=== PATIENT | female | born 1950 | race Caucasian/White ===

== ENCOUNTER → 2016-07-12 | Outpatient (CLI) | payer OTHER | LOC: BMCIMAGING 09:17 | DX: N95.0 Postmenopausal bleeding (principal) | CPT/HCPCS: G0202 ==

== ENCOUNTER → 2016-09-18 | Outpatient (CLI) | payer OTHER | LOC: FIMAGING 10:47 | PROVIDERS: ATTEND Internal Medicine | DX: R07.89 Other chest pain (principal) ==

== ENCOUNTER → 2016-09-22 | Outpatient (CLI) | payer OTHER ==
[~2016-09-22] MED LIST: IOPAMIDOL (ISOVUE-300) 100 ML BTL ONE
== END ==
LOC: FIMAGING 12:47
PROVIDERS: ATTEND Internal Medicine
DX: R06.02 Shortness of breath (principal); R07.9 Chest pain, unspecified
CPT/HCPCS: Q9967

== ENCOUNTER 2016-11-21 06:03 | Day surgery (SDC) | payer OTHER ==
[2016-11-21 06:50] VITALS: PULSE 111
[2016-11-21] MEDS ORDERED: LIDOCAINE 1% 2 ML INJ ONE (06:54)
[2016-11-21] MEDS ORDERED: LIDOCAINE 1% 2 ML INJ ID PRN (06:55)
[2016-11-21] MEDS ORDERED: LR 1,000 ML IV ONE (06:55)
--- NOTE | 2016-11-21 07:15 | PDGENHP ---
History and Physical History and Physical: Full H&P below. Updates: pt cleared for surgery. On continuous O2 for pulm HTN s/p miso for cervical prep ongoing intermittent bleeding plan of care confirmed with pt and family GABY CHRISTOPHER. [id number] 1950 10/06/2016 10:08 AM Page: 05/07 PATIENT: GABY CHRISTOPHER DATE OF : 1950 DATE: 10/06/2016 10:08 AM HISTORIAN: self VISIT TYPE: Pre-Operative Visit RENDERING PROVIDER: Magda Granados MD REFERRING PROVIDER: DEPARTMENT: Gynecology HOME PHONE #: Assessment/Plan # Detail Type Description 1. Assessment Visit for pre-operative examination (Z01.212). Provider Plan Planned procedure: Hysteroscopy, D&C,polypectomy Consents signed. Reviewed risks of pain, infection, bleeding, damage to other organs, failure to resolve condition, need for add'l procedures, transfusion. Normal exam, completing preop clearance. Already received call from anesthesia nurse. Reviewed pre and postoperative instructions. Rx for [place] and Motrin on day of surgery. Also for miso for cervical prep Recent CBC normal. T&S on day of surgery No antibiotics indicated. Post-op visit 2 weeks after procedure 2. Assessment Postmenopausal vaginal bleeding (N95.0). 3. Assessment Uterine polyp (N84.0). This 66 year old female presents for pre op. History of Present Illness: 1. pre op Here for preop for PMVB with abnormal US findings. EMBx demonstrated benign polyp tissue. Preop testing with Dr. Li has included EKG, CXR with mild opacity, follow- up CT Chest which was normal. Has nuclear stress test upcoming. Did get call from PAT, will stop ASA prior to procedure. No vaginal bleeding since the EMBx Problem List: Problem Description Onset Date Chronic Hypertension 05/03/2007 Y Hyperlipidemia 05/03/2007 Y UT 05/03/2007 Y GERD 05/03/2007 Y Problem List (not yet mapped to SNOMED-CT): Problem Description Onset Date Notes CHRONIC COUGH 05/03/2007 Medications (active prior to today) Medication Name Sig Desc Start Date Stop Date Refilled Elsewhere Zantac 150 mg Tab Take one dose by mouth twice daily 04/04/2012 04/04/2012 N Melany 180 mg Tab Take one dose by mouth daily 04/04/2012 04/04/2012 N Aspir-81 81 mg tablet,delayed release take 1 tablet by oral route every day 04/2013 N Accu-Chek Maude Plus Strips Use strip to test blood glucose 2x/daily 11/14/2012 N VITAMIN B 12 500 mcg Oral TABLET // Y Multi Vitamin 9 mg/15 mL iron oral liquid // Y Diovan HCT 160-12.5 MG Tablet TAKE 1 TABLET BY MOUTH DAILY 06/10/20162016 N magnesium take 4 Tablet by Oral route every day // Y Glucophage XR 750 mg tablet,extended release take 1 tablet by oral route every day with the evening meal 06/27/2016 N Lipitor 40 mg tablet take 1 tablet by oral route every day 09/18/20162016 N Medications reconciled today. Medication Reviewed Adherence Medication Name Sig Desc Elsewhere Status taking as directed Zantac 150 mg Tab Take one dose by mouth twice daily N Verified taking as directed Melany 180 mg Tab Take one dose by mouth daily N Verified taking as directed Aspir-81 81 mg tablet,delayed release take 1 tablet by oral route every day N Verified taking as directed Accu-Chek Maude Plus Strips Use strip to test blood glucose 2x/daily N Verified taking as directed VITAMIN B 12 500 mcg Oral TABLET Y Verified taking as directed Multi Vitamin 9 mg/15 mL iron oral liquid Y Verified taking as directed Diovan HCT 160-12.5 MG Tablet TAKE 1 TABLET BY MOUTH DAILY N Verified taking as directed Glucophage XR 750 mg tablet,extended release take 1 tablet by oral route every day with the evening meal N Verified taking as directed magnesium take 4 Tablet by Oral route every day Y Verified taking as directed Lipitor 40 mg tablet take 1 tablet by oral route every day N Verified Allergies: Ingredient Reaction Medication Name Comment SULFANILAMIDE Hives/skin rash PENICILLINS Hives/skin rash SOCIAL HISTORY (Reviewed, updated) Tobacco use reviewed. Preferred language is Fijian. EDUCATION/EMPLOYMENT/OCCUPATION Employment History Status Retired Restrictions Pre-Schooloccupational therapy aides teacher Currently . Smoking status: Never smoker. SMOKING STATUS Use Status Type Smoking Status Usage Per Day Years Used Total Pack Years no/never Never smoker ALCOHOL There is a history of alcohol use. 3 drinks consumed weekly. Vital Signs: Postmenopausal. HEIGHT Time ft in cm Last Measured Height Position % 10:14 AM 5 5 165.1 09/18/2016 WEIGHT/BSA/BMI Time lb oz kg Context % BMI kg/m2 BSA m2 10:14 AM 308 139.706 dressed without shoes 51.25 BLOOD PRESSURE Time BP mm/Hg Position Side Site Method Cuff Size 10:14 AM 128/72 MEASURED BY Time Measured by 10:14 AM Priya Contreras LPN The following were reviewed: tobacco use, date of last pap and date of last mammogram Physical Exam Exam Findings Details Constitutional Normal Well developed. Respiratory Normal Auscultation - Normal. Effort - Normal. Cardiovascular Normal Regular rhythm. No murmurs, gallops, or rubs. Abdomen Normal No abdominal tenderness. Genitourinary * Pelvic deferred. Extremity Normal No edema. Psychiatric Normal Oriented to time, place, person and situation. Appropriate mood and affect. Medications (added or changed this visit): Started Medication Generic Name Directions Instruction Stopped 11/14/2012 Accu-Chek Maude Plus Strips BLOOD SUGAR DIAGNOSTIC Use strip to test blood glucose 2x/daily 04/04/2012 Melany 180 mg Tab FEXOFENADINE HCL Take one dose by mouth daily 08/16/2012 Aspir-81 81 mg tablet,delayed release ASPIRIN take 1 tablet by oral route every day 10/06/2016 Cytotec 200 mcg tablet MISOPROSTOL Take one tablet by mouth 2 nights and 1 night before your procedure 06/10/2016 Diovan HCT 160-12.5 MG Tablet VALSARTAN/HYDROCHLOROTHIAZIDE TAKE 1 TABLET BY MOUTH DAILY 06/27/2016 Glucophage XR 750 mg tablet,extended release METFORMIN HCL take 1 tablet by oral route every day with the evening meal 10/06/2016 ibuprofen 600 mg tablet IBUPROFEN Take one tablet every 6 hours as needed for postoperative pain 09/18/2016 Lipitor 40 mg tablet ATORVASTATIN CALCIUM take 1 tablet by oral route every day magnesium MAGNESIUM take 4 Tablet by Oral route every day Multi Vitamin 9 mg/15 mL iron oral liquid MULTIVIT-MINERALS/FERROUS FUM 10/06/2016 [place] 5 mg-325 mg tablet HYDROCODONE/ACETAMINOPHEN take 1 tablet by oral route every 6 hours as needed for pain VITAMIN B 12 500 mcg Oral TABLET VITAMIN B 12 04/04/2012 Zantac 150 mg Tab RANITIDINE HCL Take one dose by mouth twice daily ORDERS/PROCEDURES/INSTRUCTIONS/EDUCATION IMMUNIZATIONS ORDERED OR ADMINISTERED BEFORE (AND INCLUDING) TODAY: Immunization Status Administered By Prevnar 13 - Pneumococcal Conjugate Vaccine, 13 valent Completed Bo Cruz Fluzone High Dose (65yrs+) 0.5 mL 1-dose syringe [USE CPT Q2038 AND ADMIN CODE [id number] FOR MEDICARE] Completed Bo Cruz TdaP Completed [place], Bo Fluzone High Dose (65yrs + and NON-MEDICARE) 0.5 mL 1-dose syringe Completed Bo Cruz Fluzone High Dose (65yrs +)-trivalent-0.5 mL 1-dose syringe Completed Aleisha Garvey flu (split) (3 yrs or older) Completed Jo Davis Td (adult) Completed VERO Aguilar Andrea Counseling / Educational Factors: Counseling / educational factors reviewed. Electronically signed by: Magda Granados MD 10/09/2016 06:44 PM Document generated by: Magda Granados 10/09/2016 06:44 PM
[2016-11-21] MEDS ORDERED: SILVER NITRATE APPLICATOR 1 APPL TP ONE (07:30)
[2016-11-21] MEDS ORDERED: VASOPRESSIN 20 UNIT/ML VIAL ONE (07:31)
[2016-11-21 07:37] LABS: ANION GAP 9 mEq/L (8-16); CALCIUM 9.5 mg/dL (8.5-10.4); CARBON DIOXIDE 26 mEq/l (22-31); CHLORIDE 107 mEq/L (97-110); CREATININE 1.2 mg/dL (0.6-1.0); GLOMERULAR FILTRATION RATE 45; GLUCOSE 88 mg/dL (70-100); POTASSIUM 4.5 mEq/L (3.5-5.2); SODIUM 142 mEq/L (134-144)
[2016-11-21] MEDS ORDERED: MIDAZOLAM 2 MG/2 ML VIAL ONE (08:09)
--- NOTE | 2016-11-21 08:22 | PDANEPAE ---
ANE History of Present Illness Hysteroscope ANE Past Medical History - Cardiovascular History Hx Hypertension: Yes Hx Arrhythmias: No Hx Chest Pain: No Hx Coronary Artery / Peripheral Vascular Disease: No Hx CHF / Valvular Disease: Yes Hx Palpitations: No Cardiovascular History Comment: CATH IN 2011. SEES DR IVY/JUAN JOSE AT [facility] [place] - Pulmonary History Hx COPD: No Hx Asthma/Reactive Airway Disease: Yes Hx Recent Upper Respiratory Infection: Yes Hx Oxygen in Use at Home: Yes O2 in Use at Home (L/minute): 3L DURING DAY, 4L AT NOC Hx Sleep Apnea: Yes Sleep Apnea Screening Result - Last Documented: Positive Pulmonary History Comment: SEASONAL ALLERGIES. MICHAEL POSITIVE. PULM HTN - Neurologic History Hx Cerebrovascular Accident: No Hx Seizures: No Hx Dementia: No - Endocrine History Hx Diabetes: Yes Endocrine History Comment: TYPE 2 - Renal History Hx Renal Disorders: No - Liver History Hx Hepatic Disorders: No - Neurological & Psychiatric Hx Hx Neurological and Psychiatric Disorders: No - Cancer History Hx Cancer: No - Congenital Disorder History Hx Congenital Disorders: No - GI History Hx Gastrointestinal Disorders: Yes Gastrointestinal History Comment: GERD - Other Health History Other Health History: WEARS GLASSES/ CONTACTS - Chronic Pain History Chronic Pain: No - Surgical History Prior Surgeries: CARDIAC CATH IN 2011. C-SECTIONS X 3. APPENDECTOMY 1966. TONSILLECTOMY ANE Review of Systems - Exercise capacity METS (RN): 3 METS ANE Patient History - Allergies Allergies/Adverse Reactions: Penicillins Allergy (Verified 11/20/16 11:20) Sulfa (Sulfonamide Antibiotics) Allergy (Verified 11/20/16 11:20) - Home Medications Home Medications: Atorvastatin Calcium [Lipitor 20 mg (RX)] 08/07/12 [Last Taken 11/21/16 06:00] Cyanocobalamin [Vitamin B12 1000 MCG (OTC)] 08/07/12 [Last Taken 11/13/16] Ranitidine HCl [Zantac 150mg/10ml oral liquid (RX)] 08/07/12 [Last Taken 05:00] Aspirin 81mg (*) 09/08/16 [Last Taken 11/13/16] Claritin 10 mg 09/08/16 [Last Taken 11/19/16] Glucophage XR 750 mg (*) 09/08/16 [Last Taken 11/19/16] MAGNESIUM 09/08/16 [Last Taken 11/13/16] Multivitamin (*) 09/08/16 [Last Taken 11/13/16] Valsartan-Hctz 160-12.5 mg Tab 09/08/16 [Last Taken 11/20/16] - NPO status NPO Since - Liquids (Date): 11/20/16 NPO Since - Liquids (Time): 22:00 NPO Since - Solids (Date): 11/20/16 NPO Since - Solids (Time): 20:30 - Anes Hx Anes Hx: no prior problems - Smoking Hx Smoking Status: Never smoked - Family Anes Hx Family Hx Anesthesia Complications: NONE ANE Labs/Vital Signs - Labs Result Diagrams: 11/21/16 07:00 - Vital Signs Blood Pressure: 161/91 Heart Rate: 111 Respiratory Rate: 16 O2 Sat (%): 90 Height: 167.64 cm Weight: 136.078 kg ANE Physical Exam - Airway Mallampati Score: Class 2 Mouth exam: normal dental/mouth exam - Pulmonary Pulmonary: no respiratory distress - Cardiovascular Cardiovascular: regular rate and rhythym - ASA Status ASA Status: IV ANE Anesthesia Plan Anesthesia Plan: spinal (Severe obesity)
[2016-11-21] MEDS ORDERED: LIDOCAINE 2% 5 ML SDV ONE (08:24)
[2016-11-21] MEDS ORDERED: PROPOFOL/EMULSION 500 MG/50 ML BOTTLE IV ONE (08:28)
[2016-11-21] MEDS ORDERED: fentaNYL 100 MCG/2 ML INJ ONE ×2 (08:29→09:03)
[2016-11-21] MEDS ORDERED: LIDOCAINE 1% 300 MG/30 ML SDV ONE (08:34)
[2016-11-21] MEDS ORDERED: PROPOFOL 200 MG/20 ML VIAL ONE (08:58)
[2016-11-21] MEDS ORDERED: ROCURONIUM 50 MG/5 ML VIAL ONE (09:08)
[2016-11-21] MEDS ORDERED: PHENYLEPHRINE HCL 100 MCG/ML SYR ONE (09:16)
[2016-11-21] MEDS ORDERED: NALOXONE HCL 0.4 MG/ML INJ ONE (09:41)
[2016-11-21] MEDS ORDERED: GLYCOPYRROLATE 0.2 MG/1 ML VIAL ONE ×4 (09:44)
[2016-11-21] MEDS ORDERED: NEOSTIGMINE METHYLSULFATE 5 MG/5 ML SYR ONE (09:44)
[2016-11-21] MEDS ORDERED: BALANCED SALT IRRIG SOLN 15 ML OPHT.BTL ONE (09:53)
[2016-11-21] MEDS ORDERED: HYDROCODONE/APAP 5/325 TAB PO PRN (09:56)
--- NOTE | 2016-11-21 10:00 | SUROPNOTE ---
[facility] Operative Report - Surgery 11/21/17 Preop dx: uterine polyp, obesity, diabetes, pulmonary hypertension Postop dx: same Surgeon: Roberta Anesthesia: Montero Anesthetic: GETA Procedure: EUA, hysteroscopy, polypectomy, D&C Complications: None Specimens: polyp Findings: Large polyp with thin stalk emanating from left cornua. Otherwise normal uterus with e/o atrophy EBL: minimal Fluid deficit: 410 ml normal saline Outcome: Stable to PACU
[2016-11-21 10:06] VITALS: TEMP 97.7
[2016-11-21] MEDS ORDERED: fentaNYL 100 MCG/2 ML INJ IVP PRN (10:08)
[2016-11-21] MEDS ORDERED: NALOXONE HCL 0.4 MG/ML INJ IVP PRN (10:08)
[2016-11-21] MEDS ORDERED: ONDANSETRON 4 MG/2 ML VIAL IVP PRN (10:08)
--- NOTE | 2016-11-21 10:10 | POSTANESTH ---
Post Anesthetic Evaluation Cardiovascular Status: Normal, Stable Respiratory Status: Similar to Pre-op Cond. Level of Consciousness/Mental Status: Can Participate in Eval Pain Control: Adequate, Prn Tx Ordered Nausea/Vomiting Control: Adequate, Prn Tx Ordered Complications Possibly Related to Anesthesia: None Noted (No back pain or leg pain)
[2016-11-21] MEDS ORDERED: ONDANSETRON 4 MG/2 ML VIAL ONE (10:49)
[2016-11-21 11:16] VITALS: RESP 18
[2016-11-21 11:57] VITALS: BP 116/66; O2SAT 96
--- NOTE | 2016-11-22 09:23 | GOP ---
[f rep st] OPERATIVE REPORT DATE OF OPERATION: 11/21/2016 SURGEON: Magda Granados MD ANESTHESIA: General with endotracheal tube. ANESTHESIOLOGIST: Dr. Montero. PREOPERATIVE DIAGNOSIS: Uterine polyp, postmenopausal vaginal bleeding, obesity , diabetes, pulmonary hypertension. POSTOPERATIVE DIAGNOSIS: Uterine polyp, postmenopausal vaginal bleeding, obesity, diabetes, pulmonary hypertension. PROCEDURE PERFORMED: Exam under anesthesia, hysteroscopy, polypectomy, dilation and curettage. FINDINGS: Large intrauterine polyp with thin stalk emanating from the left cornea, otherwise normal uterus with evidence of atrophy. SPECIMENS: Uterine polyp and endometrial curettings. ESTIMATED BLOOD LOSS: Minimal. DESCRIPTION OF PROCEDURE: The patient was brought to the operating room. A time-out was performed with all parties present and in agreement with the patient and procedure. An attempt was made at spinal anesthetic; however, this was unsuccessful, so she was then induced with general endotracheal anesthesia which was completed without complication. She was prepped and draped in the normal sterile fashion in dorsal lithotomy with Epifanio stirrups. Her bladder was drained with an in and out catheterization. A final time-out was performed. The speculum was placed and the anterior lip of the cervix was grasped with a single-tooth tenaculum. The cervix was sequentially dilated from 2 to 5.5 mm without difficulty using Hegar dilators. The 5 mm hysteroscope was introduced with the findings as noted above. The TRUCLEAR polyp blade was introduced and was used to completely resect the polyp. All instruments were removed. A sharp curettage was performed at that time, with scant return of tissues. The tenaculum was removed and hemostasis was noted. All instruments were removed at that time. The patient was awakened and brought to the recovery room in good condition. COMPLICATIONS: None. FLUID DEFICIT: 410 mL normal saline. URINE OUTPUT: 50 mL via in and out catheterization. OUTCOME: Stable to PACU. /[id number]/MODL MTDD
== END 2016-11-21 12:15 | disposition home or self-care (01) ==
LOC: FSGY 06:03
PROVIDERS: ATTEND Obstetrics & Gynecology
PROC: 0UDB8ZX Extraction of Endometrium, Via Natural or Artificial Opening Endoscopic, Diagnostic (ICD-10-PCS; principal; 2016-11-21 07:30)
DX: N84.0 Polyp of corpus uteri (principal); N95.0 Postmenopausal bleeding; I27.2 Other secondary pulmonary hypertension; E11.9 Type 2 diabetes mellitus without complications; I10 Essential (primary) hypertension; E78.5 Hyperlipidemia, unspecified; K21.9 Gastro-esophageal reflux disease without esophagitis; E66.9 Obesity, unspecified; Z68.42 Body mass index [BMI] 45.0-49.9, adult; Z88.0 Allergy status to penicillin
CPT/HCPCS: 58558; C1782; J2250; J2310; J2370; J2405; J2704; J2710; J3010

== ENCOUNTER → 2017-11-19 | Outpatient (CLI) | payer OTHER ==
[~2017-11-19] MED LIST changes: +IOPAMIDOL (ISOVUE 370) 100 ML BTL IV ONE; -IOPAMIDOL (ISOVUE-300) 100 ML BTL ONE
== END ==
LOC: FIMAGING 13:48
PROVIDERS: ATTEND Internal Medicine
DX: R79.1 Abnormal coagulation profile (principal); R06.02 Shortness of breath; R91.8 Other nonspecific abnormal finding of lung field; I51.7 Cardiomegaly
CPT/HCPCS: 82565-PO; Q9967